=== PATIENT | female | born 1960 | race Caucasian/White ===

== ENCOUNTER → 2018-12-22 | Outpatient (CLI) | payer OTHER | LOC: M.RAD 12-19 13:00 | DX: Z12.31 Encounter for screening mammogram for malignant neoplasm of breast (principal) ==

== ENCOUNTER → 2018-12-30 | Outpatient (CLI) | payer OTHER | LOC: M.ULTRA 10:46 | DX: N63.12 Unspecified lump in the right breast, upper inner quadrant (principal); N63.14 Unspecified lump in the right breast, lower inner quadrant; N63.13 Unspecified lump in the right breast, lower outer quadrant; N63.11 Unspecified lump in the right breast, upper outer quadrant; N63.21 Unspecified lump in the left breast, upper outer quadrant; R92.2 Inconclusive mammogram ==

== ENCOUNTER → 2020-06-16 | Outpatient (CLI) | payer OTHER | LOC: M.RAD 09:43 | PROVIDERS: ATTEND Internal Medicine | DX: Z12.31 Encounter for screening mammogram for malignant neoplasm of breast (principal) ==

== ENCOUNTER → 2020-06-22 | Outpatient (CLI) | payer OTHER | LOC: M.ULTRA 10:00 | PROVIDERS: ATTEND Internal Medicine | DX: N60.01 Solitary cyst of right breast (principal); N63.10 Unspecified lump in the right breast, unspecified quadrant; N63.20 Unspecified lump in the left breast, unspecified quadrant ==